=== PATIENT | female | born 1995 | race Caucasian/White ===

== ENCOUNTER 2023-10-23 20:36 | Emergency (ER) | payer BC, OTHER ==
[2023-10-23] MEDS ORDERED: Lidocaine 2% with EPINEPHrine 1:100,000 20 ML MDV ONE (20:41)
[2023-10-23 20:50] VITALS: BP 143/86; PULSE 94
[2023-10-24] MEDS ORDERED: Aspirin 81 MG Tab.Chew ONE (00:24)
== END 2023-10-23 21:15 | disposition home or self-care (01) ==
LOC: KA.ED 20:36
DX: S01.81XA Laceration without foreign body of other part of head, initial encounter (principal); F17.210 Nicotine dependence, cigarettes, uncomplicated; Z79.899 Other long term (current) drug therapy; Z88.0 Allergy status to penicillin; Z88.1 Allergy status to other antibiotic agents; Z91.018 Allergy to other foods; W20.8XXA Other cause of strike by thrown, projected or falling object, initial encounter
CPT/HCPCS: 99282; 99283

== ENCOUNTER 2024-04-10 18:51 | Emergency (ER) | payer BC ==
[2024-04-10 19:04] VITALS: BP 121/68; PULSE 91
[2024-04-10] MEDS: Azithromycin 250 MG Tab PO ONE (19:34)
[2024-04-10] MEDS: Ibuprofen 600 MG Tab PO ONE (19:34)
== END 2024-04-10 19:40 | disposition home or self-care (01) ==
LOC: KA.ED 18:51
DX: H66.91 Otitis media, unspecified, right ear (principal); J06.9 Acute upper respiratory infection, unspecified; Z88.1 Allergy status to other antibiotic agents; Z91.018 Allergy to other foods; Z88.0 Allergy status to penicillin; Z79.899 Other long term (current) drug therapy
CPT/HCPCS: 99283; A9270-GY